=== PATIENT | female | born 1985 | race Caucasian/White ===

== ENCOUNTER 2021-03-28 13:54 | Emergency (ER) | payer OTHER, SELFPAY ==
[2021-03-28 14:07] VITALS: BP 144/98; PULSE 126; RESP 16; TEMP 37.2; O2SAT 98
--- NOTE | 2021-03-28 14:09 | ED.URI ---
HPI - URI/Sore Throat General Chief Complaint: Upper Respiratory Infection Stated Complaint: Body ache/sore throat/R ear pain Time Seen by Provider: 03/28/21 14:09 Source: patient and RN notes reviewed Mode of arrival: ambulatory Limitations: no limitations History of Present Illness HPI Narrative: 36-year-old female presents to the [facility] with complaints of body aches, right ear pain and a sore throat. Has tried Cepacol lozenges and Tylenol with very little relief. Has a history of strep. 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 Has been doing inpatient treatment at [facility] for drug addiction. Related Data Home Medications Medication Instructions Recorded Confirmed Cepacol 03/28/21 Claritin 03/28/21 Colace 03/28/21 amlodipine 03/28/21 melatonin 03/28/21 Allergies Allergy/AdvReac Type Severity Reaction Status Date / Time NSAIDS (Non-Steroidal AdvReac Ulcers Verified 03/28/21 14:46 Anti-Inflamma Review of Systems Review of Systems: All systems reviewed & are unremarkable except as noted in HPI and below Constitutional: Constitutional: Reports no additional constitutional complaints, Denies chills, Reports fatigue, Denies fever(s) and Denies weakness Eyes: Eyes: Reports no additional eye complaints ENT: Reports as per HPI, Denies dysphagia, Denies dizziness, Denies nasal congestion and Reports sore throat Comments: Right ear pain Cardiovascular: Cardiovascular: Reports no additional cardiovascular complaints and Denies chest pain Respiratory: Respiratory: Reports no additional respiratory complaints, Denies chest congestion, Denies cough, Denies dyspnea and Denies wheezing Gastrointestinal: Gastrointestinal: Reports no additional gastrointestinal complaints, Denies abdominal pain, Denies diarrhea, Denies nausea and Denies vomiting Genitourinary: Genitourinary: Reports no additional female genitourinary complaints Musculoskeletal: Musculoskeletal: Reports no additional musculoskeletal complaints and Reports back pain (Chronic, nothing new) Integumentary/Breasts: Skin/Breast: Reports system reviewed and no additional complaints, except as docu and Denies rash Neurologic: Reports system reviewed and no additional complaints, except as documented Endocrine: Endocrine: Reports no additional endocrine complaints PMFSH Comments At the time of my signature, I reviewed and agree with the nursing past medical, surgical, social, and family history. There is no relevant family history pertinent to the patient complaint. Exam Const: General: no acute distress, alert and ill appearing acutely and chronically Nutritional Appearance: thin Orientation/consciousness: patient oriented x3 HENMT: Head: normal to inspection Ears: hearing grossly normal bilaterally, external ears normal and TM's normal bilaterally General nose exam: Normal external nose present and Normal nasal mucous membranes and turbinates present Face and sinus: normal facial exam and face symmetric Mouth: Yes lip normal Throat: uvula midline, abnormal tonsil (Enlarged with exudate) bilateral, posterior oropharynx abnormal erythema and exudates, postnasal drainage and no uvular edema Eyes: Pupils: Equal, round and reactive pupils present Neck: Neck: lymphadenopathy bilateral submandibular soft and tender Chest: Chest palpation & inspection: normal inspection of the chest Cardio: Rate: tachycardic Other: Patient currently not feeling well, currently going through detox at [facility] from methamphetamine : General: Yes no CVA tenderness Skin: General skin exam: normal color Rashes: no rashes Neuro: General: patient oriented x3, moves all extremities and no meningeal signs Speech: normal speech Gait exam (Neuro): Normal gait present Extrem: General: normal to inspection and no pedal edema Psych: Appearance: grossly normal Mental Status: mental status grossly normal Affect: Anxious affect present Attitude:
== END 2021-03-28 14:26 | disposition home or self-care (01) ==
PROVIDERS: Emergency Provider Nurse Practitioner
DX: J03.90 Acute tonsillitis, unspecified (principal); I10 Essential (primary) hypertension; N80.9 Endometriosis, unspecified; Z85.9 Personal history of malignant neoplasm, unspecified
CPT/HCPCS: 87081; 87880; 99203; G0463